=== PATIENT | male | born 1980 | race Two or more races ===

== ENCOUNTER 2022-08-21 10:46 | Emergency (ER) | payer SELFPAY ==
[~2022-08-21] VITALS: Ht 180.3 cm; Wt 86.2 kg
--- NOTE | 2022-08-21 11:00 | NUR ---
[id number] FROM [address] FOR BIZARRE BEHAVIOR. PLACED ON BED, BREATHING EVEN AND UNLABORED SATURATING AT 98%RA
[2022-08-21] MEDS ORDERED: diphenhydrAMINE HCL 50 MG/ML VIAL ONE (11:21)
[2022-08-21] MEDS ORDERED: HALOPERIDOL LACTATE INJ 5 MG/ML VIAL ONE (11:21)
[2022-08-21] MEDS ORDERED: LORAZEPAM INJ 2 MG/ML VIAL ONE (11:22)
[2022-08-21] MEDS ORDERED: HALOPERIDOL LACTATE INJ 5 MG/ML VIAL IM ONE (11:30)
[2022-08-21] MEDS ORDERED: LORAZEPAM INJ 2 MG/ML VIAL IM ONE (11:30)
[2022-08-21] MEDS ORDERED: diphenhydrAMINE HCL 50 MG/ML VIAL IM ONE (11:30)
[2022-08-21 12:03] LABS: BASOPHILS % (AUTO) 0.5 % (0.0-2.0); EOSINOPHILS % (AUTO) 5.6 % (0.0-6.0); HEMATOCRIT 40 % (39-51); HEMOGLOBIN 13.2 g/dL (13.5-17.5); LYMPHOCYTES # (AUTO) 1.4 K/uL (0.8-4.8); LYMPHOCYTES % (AUTO) 29.8 % (20.0-44.0); MEAN CORPUSCULAR HGB CONC 33 g/dl (31.0-36.0); MEAN CORPUSCULAR VOLUME 89 fL (80-96); MONOCYTES # (AUTO) 0.5 K/uL (0.1-1.30); MONOCYTES % (AUTO) 11.6 % (2.0-12.0); NEUTROPHILS # (AUTO) 2.4 K/uL (1.8-8.9); NEUTROPHILS % (AUTO) 52.5 % (43.0-81.0); PLATELET COUNT (AUTO) 280 K/uL (150-450); RED BLOOD CELL COUNT(AUTO) 4.48 MIL/uL (4.5-6.0); WHITE BLOOD COUNT (AUTO) 4.6 K/uL (4.3-11.0)
[2022-08-21 12:08] LABS: BILIRUBIN,URINE NEGATIVE (NEGATIVE); COLOR,URINE YELLOW (YELLOW); LEUKOCYTE ESTERASE ,URINE NEGATIVE (NEGATIVE); NITRITE, URINE NEGATIVE (NEGATIVE); PROTEIN,URINE NEGATIVE (NEGATIVE); UGLUCOSE NEGATIVE (NEGATIVE); UROBILINOGEN,URINE 0.2 EU/dL (0.2)
[2022-08-21 12:17] LABS: CALCIUM, SERUM 9.3 mg/dL (8.5-10.1); CARBON DIOXIDE 29 mmol/L (21-32); CHLORIDE 104 mmol/L (98-107); CREATININE 1.1 mg/dL (0.6-1.3); GLUCOSE 99 mg/dL (74-106); POTASSIUM 4.4 mmol/L (3.5-5.1); SODIUM SERUM 136 mmol/L (136-145); UREA NITROGEN, BLOOD 16 mg/dL (7-18)
[2022-08-21 12:28] LABS: ALANINE AMINOTRANSFERASE 18 U/L (12-78); ALBUMIN 3.6 g/dL (3.4-5.0); ALCOHOL, BLOOD < 3 mg/dL (0-0); ALKALINE PHOSPHATASE 78 U/L (46-116); ASPARTATE AMINOTRANSFERASE 21 U/L (15-37); BILIRUBIN,DIRECT 0.1 mg/dL (0.0-0.2); BILIRUBIN,TOTAL 0.6 mg/dL (0.2-1.0)
[2022-08-21 12:30] LABS: ACETAMINOPHEN 0 ug/ml (10-30)
--- NOTE | 2022-08-21 14:23 | NUR ---
PT SLEEPING IN BED. ON MONITOR W/ STABLE VITAL SIGN. WILL CONTINUE TO MONITOR.
[2022-08-22] VITALS: BP 123/70
--- NOTE | 2022-08-22 | NUR ---
PATINET A/O X 4, RR EVEN AND UNLABORED, NO SOB NOTED. VSS. NO ACUTE DISTRESS NOTED.
--- NOTE | 2022-08-22 02:00 | NUR ---
Patient discharged to home in stable condition. Written and verbal after care instructions given. Patient verbalizes understanding of instruction.
== END 2022-08-22 03:00 | disposition home or self-care (01) ==
LOC: ER 10:57
DX: F23 Brief psychotic disorder (principal); F15.129 Other stimulant abuse with intoxication, unspecified; R94.31 Abnormal electrocardiogram [ECG] [EKG]
CPT/HCPCS: 99284; 96372 ×2; 93005; 85025; 80048; 80076; 81003; 36415; 80143; 80320; 80307; J2060; J1200; J1630; G0480